=== PATIENT | male | born 2000 | race Caucasian/White ===

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

== ENCOUNTER 2020-02-14 13:00 | Emergency (ER) | payer SELFPAY ==
[~2020-02-14] VITALS: Ht 180.3 cm; Wt 86.8 kg
[~2020-02-14 13:00] MED LIST changes: +PROAIR HFA0.09 MG/AC IH; +TESSALON PERLE200 MG PO
[2020-02-14 13:12] VITALS: TEMP 99
[2020-02-14 14:24] VITALS: BP 120/62; PULSE 98
== END 2020-02-14 14:24 | disposition home or self-care (01) ==
LOC: COL.ER 13:00
DX: R51 Headache (principal); J45.909 Unspecified asthma, uncomplicated; Z20.828 Contact with and (suspected) exposure to other viral communicable diseases; Z79.52 Long term (current) use of systemic steroids

== ENCOUNTER 2020-12-11 20:43 | Emergency (ER) | payer SELFPAY ==
[~2020-12-11] VITALS: Ht 177.8 cm; Wt 84.5 kg
[2020-12-11 21:31] LABS: ALBUMIN 4.7 gm/dL (3.5-5.0); BILIRUBIN,TOTAL 0.6 mg/dL (0.0-1.0); CALCIUM 9.9 mg/dL (8.4-10.2); CREATININE, serum 0.89 (0.66-1.25)
[2020-12-11 21:34] LABS: BASO # 0.1 (0.0-0.2); EOS # 0.3 (0.0-0.7); EOS % 4.1 % (0-4.0); GRAN # 4.2 (1.4-6.5); HEMATOCRIT 47.2 % (36.0-47.0); LYMPH # 2.8 (1.2-3.4); LYMPH % 34.6 % (20.0-51.0); MEAN CELL VOLUME 90 fl (80.0-95.0); MEAN CORPUSCULAR HEMOGLOBIN 31 pg (26.0-32.0); MEAN CORPUSCULAR HGB CONC 34 g/dl (33.0-37.0); MEAN PLATELET VOLUME 10.1 fl (7.4-10.4); MONO # 0.6 (0.1-0.6); MONO % 7.8 % (1.7-9.3); PLATELET COUNT 321 K/mm3 (130-400); RED BLOOD COUNT 5.24 M/mm3 (4.20-5.60); REDCELL DISTRIBUTION WIDTH-CV 12.2 % (11.5-14.5)
[2020-12-11 22:30] VITALS: BP 128/60; PULSE 80
== END 2020-12-11 22:40 | disposition home or self-care (01) ==
LOC: COL.ER 20:43
PROVIDERS: Personal Emergency Response Attendant
DX: T18.128A Food in esophagus causing other injury, initial encounter (principal); J45.909 Unspecified asthma, uncomplicated; Z79.52 Long term (current) use of systemic steroids

== ENCOUNTER 2022-07-14 17:40 | Emergency (ER) | payer OTHER ==
[~2022-07-14] VITALS: Ht 180.3 cm; Wt 95.5 kg
[2022-07-14 17:47] VITALS: TEMP 98.6
[2022-07-14 18:08] LABS: COLLECTION METHOD CLEAN CATCH
[2022-07-14 18:19] LABS: MUCOUS Present (NOT PRESENT); SQUAMOUS EPITHELIAL None Seen /hpf (0-10); URINE BACTERIA None Seen /hpf (NONE SEEN); URINE RBC None Seen /hpf (0-2)
[2022-07-14 18:21] LABS: PH 5.5 (5-8); URINE COLOR Yellow (YELLOW)
[2022-07-14 18:22] LABS: URINE APPEARANCE Hazy (CLEAR/HAZY); URINE BLOOD Negative (NEGATIVE); URINE GLUCOSE Negative (NEGATIVE); URINE KETONE Negative (NEGATIVE); URINE NITRATE Negative (NEGATIVE); URINE PROTEIN(semi-quant) Negative (NEGATIVE); URINE UROBILINOGEN 0.2 (NEGATIVE)
[2022-07-14 19:01] VITALS: BP 116/76; PULSE 78
== END 2022-07-14 19:10 | disposition home or self-care (01) ==
LOC: COL.ER 17:40
PROVIDERS: Family Medicine
DX: N50.811 Right testicular pain (principal); N50.812 Left testicular pain; Z28.310 Unvaccinated for COVID-19